=== PATIENT | female | born 1940 | race Two or more races ===

== ENCOUNTER 2021-11-26 15:46 | Inpatient (IN) | payer OTHER ==
[~2021-11-26] VITALS: Ht 165.1 cm; Wt 59.4 kg
[2021-11-26] MEDS ORDERED: ELIQUIS2.5 MG (18:01)
[2021-11-26] MEDS ORDERED: LASIX20 MG (18:02)
[2021-11-26] MEDS ORDERED: CARVEDILOL12.5 M1 (18:02)
[2021-11-26] MEDS ORDERED: PREDNISONE20 M1 (18:03)
[2021-11-26] MEDS ORDERED: TIROSINT25 MCG (18:04)
[2021-11-26] MEDS ORDERED: [UNRECOGNIZED DRUG - OTHER] (18:04)
[2021-11-26] MEDS ORDERED: ISOSORBIDE DINI30 MG (18:05)
[2021-11-26] MEDS ORDERED: HORIZANT300 MG (18:06)
== END 2021-12-15 07:54 | disposition expired | DRG 196 ==
LOC: ER 15:46 → MEDJ 22:41 → SEC-K 22:41 → MEDJ 11-27 00:28
PROVIDERS: ADMIT Internal Medicine; ATTEND Internal Medicine
PROC: BW25ZZZ Computerized Tomography (CT Scan) of Chest, Abdomen and Pelvis (ICD-10-PCS; 2021-11-26)
PROC: 3E0F7GC Introduction of Other Therapeutic Substance into Respiratory Tract, Via Natural or Artificial Opening (ICD-10-PCS; 2021-11-26)
PROC: 3E0F7SF Introduction of Other Gas into Respiratory Tract, Via Natural or Artificial Opening (ICD-10-PCS; 2021-11-26)
PROC: 30243N1 Transfusion of Nonautologous Red Blood Cells into Central Vein, Percutaneous Approach (ICD-10-PCS; 2021-11-27)
PROC: 4A033R1 Measurement of Arterial Saturation, Peripheral, Percutaneous Approach (ICD-10-PCS; 2021-11-27)
PROC: B24BZZZ Ultrasonography of Heart with Aorta (ICD-10-PCS; 2021-11-27)
PROC: 02HV33Z Insertion of Infusion Device into Superior Vena Cava, Percutaneous Approach (ICD-10-PCS; 2021-11-27)
PROC: 8E0ZXY6 Isolation (ICD-10-PCS; 2021-11-27)
PROC: 5A09557 Assistance with Respiratory Ventilation, Greater than 96 Consecutive Hours, Continuous Positive Airway Pressure (ICD-10-PCS; principal; 2021-12-01)
PROC: 4A12X4Z Monitoring of Cardiac Electrical Activity, External Approach (ICD-10-PCS; 2021-12-03)
PROC: 0HDEXZZ Extraction of Left Lower Arm Skin, External Approach (ICD-10-PCS; 2021-12-13)
DX: J84.89 Other specified interstitial pulmonary diseases (principal); J96.00 Acute respiratory failure, unspecified whether with hypoxia or hypercapnia; I13.0 Hypertensive heart and chronic kidney disease with heart failure and stage 1 through stage 4 chronic kidney disease, or unspecified chronic kidney disease; N18.4 Chronic kidney disease, stage 4 (severe); N17.8 Other acute kidney failure; I50.20 Unspecified systolic (congestive) heart failure; N04.9 Nephrotic syndrome with unspecified morphologic changes; E27.49 Other adrenocortical insufficiency; N05.2 Unspecified nephritic syndrome with diffuse membranous glomerulonephritis; J22 Unspecified acute lower respiratory infection; I25.10 Atherosclerotic heart disease of native coronary artery without angina pectoris; E11.22 Type 2 diabetes mellitus with diabetic chronic kidney disease; E11.65 Type 2 diabetes mellitus with hyperglycemia; Z79.4 Long term (current) use of insulin; D63.1 Anemia in chronic kidney disease; E78.49 Other hyperlipidemia; E87.5 Hyperkalemia; E03.8 Other specified hypothyroidism; Z95.1 Presence of aortocoronary bypass graft; E87.6 Hypokalemia; D69.6 Thrombocytopenia, unspecified; S50.822A Blister (nonthermal) of left forearm, initial encounter; X58.XXXA Exposure to other specified factors, initial encounter; Y93.89 Activity, other specified; Y92.230 Patient room in hospital as the place of occurrence of the external cause; Y99.8 Other external cause status; Z20.822 Contact with and (suspected) exposure to COVID-19